=== PATIENT | female | born 1945 | race African-American/Black ===

== ENCOUNTER 2019-05-10 18:16 | Inpatient (IN) | payer MEDICARE ==
[~2019-05-10] VITALS: Ht 157.5 cm; Wt 69.4 kg
[2019-05-10 20:01] LABS: BASOPHILS % 0.5 % (0.0-2.0); EOSINOPHILS % 2.9 % (0.0-5.0); HEMATOCRIT. 31.4 % (36.0-48.0); LYMPHOCYTES % 17.7 % (20.0-50.0); MEAN CORPUSCULAR HEMOGLOBIN 27.2 pg (28.0-32.0); MEAN PLATELET VOLUME 9.2 fl (7.4-10.4); MONOCYTES % 8.2 % (2.0-8.0); NEUTROPHILS % 70.7 % (40.0-76.0); PLATELET 206 x1000/uL (130-400); RED CELL DISTRIBUTION WIDTH 16.6 % (11.6-14.6)
[2019-05-10 20:18] LABS: CHLORIDE 112 mEq/L (98-107)
[2019-05-10 20:26] LABS: CREATINE KINASE 83 IU/L (26-192)
[2019-05-10 20:29] LABS: CREATINE KINASE MB FRACTION 1.7 ng/mL (0.5-3.6)
[2019-05-10 20:34] LABS: PARTIAL THROMBOPLASTIN TIME > 100.0 sec (23.4-31.0)
[2019-05-10] MEDS ORDERED: ASPI-1497 MT (23:42)
[2019-05-10] MEDS ORDERED: RANO500T3 MT (23:42)
[2019-05-10 23:43] VITALS: BP 157/55
[2019-05-10 23:56] VITALS: BP 157/55
[2019-05-11] MEDS ORDERED: LORAZEPAM 2MG/ML CPJ IV PRN (02:00)
[2019-05-11] MEDS ORDERED: CEFTRIAXONE 1 G PREMIX 50 ML IV SCH ×2 (02:00→05:00)
[2019-05-11] MEDS ORDERED: MAGNESIUM/ALUMINUM HYDROXIDE/SIMETHICONE 30ML UDC PO PRN (02:00)
[2019-05-11] MEDS ORDERED: ONDANSETRON HCL 4MG/2ML INJ IV PRN (02:00)
[2019-05-11] MEDS ORDERED: ACETAMINOPHEN 325MG TABLET PO PRN (02:00)
[2019-05-11] MEDS ORDERED: HYDROCODONE/ACETAMINOPHEN 5/325MG TABLET PO PRN (02:00)
[2019-05-11] MEDS ORDERED: CLONIDINE 0.1MG TABLET PO PRN (02:00)
[2019-05-11] MEDS ORDERED: DEXTROSE 50% WATER 50ML SYRINGE IV PRN (02:15)
[2019-05-11] MEDS ORDERED: SODIUM CHLORIDE 0.45% 1,000 ML IV SCH (03:00)
[2019-05-11 04:00] VITALS: BP 128/70
[2019-05-11 08:00] VITALS: BP 127/65
[2019-05-11] MEDS: BLOOD SUGAR DIAGNOSTIC STRIP TEST SCH ×4 (08:00→21:28)
[2019-05-11] MEDS: INSULIN LISPRO 100 UNITS/ML SUBCUT SCH ×4 (08:00→21:00)
[2019-05-11] MEDS ORDERED: INFLUENZA VIRUS VACCINE(AFLURIA) 0.5ML SYR IM ONE (10:00)
[2019-05-11 12:00] VITALS: BP 134/96
[2019-05-11] MEDS: ENOXAPARIN 30MG/0.3ML SYR SUBCUT SCH (12:21)
[2019-05-11] MEDS: AMLODIPINE 10MG TABLET PO SCH (12:21)
[2019-05-11] MEDS: ASPIRIN 81MG EC TABLET PO SCH (12:21)
[2019-05-11 13:33] LABS: CREATINE KINASE 76 IU/L (26-192)
[2019-05-11 16:00] VITALS: BP 128/89
[2019-05-11 17:04] LABS: CREATINE KINASE 77 IU/L (26-192)
[2019-05-11] MEDS: CLONAZEPAM 0.5MG TABLET PO SCH (18:19)
[2019-05-11 19:56] LABS: VITAMIN B12 SERUM 690 pg/mL (211-911)
[2019-05-11 20:00] VITALS: BP 109/49
[2019-05-12] VITALS: BP 100/45
[2019-05-12 04:00] VITALS: BP 124/58
[2019-05-12 08:00] VITALS: BP 121/52
[2019-05-12] MEDS: INSULIN LISPRO 100 UNITS/ML SUBCUT SCH ×4 (08:10→21:00)
[2019-05-12 08:19] LABS: BASOPHILS % 0.7 % (0.0-2.0); EOSINOPHILS % 4.8 % (0.0-5.0); HEMATOCRIT. 32.1 % (36.0-48.0); HEMOGLOBIN. 10.3 g/dL (12.0-16.0); LYMPHOCYTES % 28.9 % (20.0-50.0); MEAN CORPUSCULAR HEMOGLOBIN 26.8 pg (28.0-32.0); MEAN CORPUSCULAR VOLUME 83.8 fL (81.0-99.0); MEAN PLATELET VOLUME 9.2 fl (7.4-10.4); MONOCYTES % 9.3 % (2.0-8.0); NEUTROPHILS % 56.3 % (40.0-76.0); PLATELET 212 x1000/uL (130-400); RED BLOOD CELL COUNT 3.83 mill/uL (4.2-5.4); RED CELL DISTRIBUTION WIDTH 16.5 % (11.6-14.6)
[2019-05-12 08:21] LABS: CHLORIDE 111 mEq/L (98-107)
[2019-05-12 08:31] LABS: LDL CHOLESTEROL 62 mg/dL (5-100)
[2019-05-12] MEDS: BLOOD SUGAR DIAGNOSTIC STRIP TEST SCH ×4 (08:31→21:31)
[2019-05-12 08:33] LABS: HDL CHOLESTEROL 61 mg/dL (40-59)
[2019-05-12] MEDS: CLONAZEPAM 0.5MG TABLET PO SCH ×2 (09:12→17:44)
[2019-05-12] MEDS: ASPIRIN 81MG EC TABLET PO SCH (09:12)
[2019-05-12] MEDS: LIDOCAINE HCL/PF 1% 10 MG/ML 5ML VIAL IJ SCH (09:13)
[2019-05-12] MEDS: ENOXAPARIN 30MG/0.3ML SYR SUBCUT SCH (09:13)
[2019-05-12] MEDS: AMLODIPINE 10MG TABLET PO SCH (09:13)
[2019-05-12] MEDS: CEFTRIAXONE SODIUM 1 G/VIAL IM SCH (09:14)
[2019-05-12 12:00] VITALS: BP 121/49
[2019-05-12 16:00] VITALS: BP 97/63
[2019-05-12 20:00] VITALS: BP 119/56
[2019-05-13 00:07] VITALS: BP 133/48
[2019-05-13 04:00] VITALS: BP 141/63
[2019-05-13] MEDS: BLOOD SUGAR DIAGNOSTIC STRIP TEST SCH ×3 (06:17→17:21)
[2019-05-13 08:00] VITALS: BP 140/65
[2019-05-13] MEDS: INSULIN LISPRO 100 UNITS/ML SUBCUT SCH ×4 (08:08→21:00)
[2019-05-13] MEDS: AMLODIPINE 10MG TABLET PO SCH (09:34)
[2019-05-13] MEDS: LIDOCAINE HCL/PF 1% 10 MG/ML 5ML VIAL IJ SCH (09:34)
[2019-05-13] MEDS: ASPIRIN 81MG EC TABLET PO SCH (09:34)
[2019-05-13] MEDS: CEFTRIAXONE SODIUM 1 G/VIAL IM SCH (09:34)
[2019-05-13] MEDS: CLONAZEPAM 0.5MG TABLET PO SCH ×2 (09:34→17:31)
[2019-05-13] MEDS: ENOXAPARIN 30MG/0.3ML SYR SUBCUT SCH (09:35)
[2019-05-13 12:00] VITALS: BP 135/63
[2019-05-13 16:00] VITALS: BP 117/65
[2019-05-13 20:00] VITALS: BP 146/62
[2019-05-14] VITALS (7 sets, daily range): BP systolic 136–151; BP diastolic 55–68
[2019-05-14] MEDS: BLOOD SUGAR DIAGNOSTIC STRIP TEST SCH ×4 (05:51→21:00)
[2019-05-14] MEDS: INSULIN LISPRO 100 UNITS/ML SUBCUT SCH ×4 (08:10→21:00)
[2019-05-14] MEDS: ASPIRIN 81MG EC TABLET PO SCH (09:54)
[2019-05-14] MEDS: ENOXAPARIN 30MG/0.3ML SYR SUBCUT SCH (09:54)
[2019-05-14] MEDS: AMLODIPINE 10MG TABLET PO SCH (09:55)
[2019-05-14] MEDS: CLONAZEPAM 0.5MG TABLET PO SCH ×2 (09:55→18:02)
[2019-05-14] MEDS: CEFTRIAXONE SODIUM 1 G/VIAL IM SCH (09:57)
[2019-05-15] VITALS: BP 134/63
[2019-05-15 04:00] VITALS: BP 124/68
[2019-05-15] MEDS: BLOOD SUGAR DIAGNOSTIC STRIP TEST SCH ×4 (06:40→21:29)
[2019-05-15 08:00] VITALS: BP 137/75
[2019-05-15] MEDS: INSULIN LISPRO 100 UNITS/ML SUBCUT SCH ×4 (08:10→21:00)
[2019-05-15] MEDS: ASPIRIN 81MG EC TABLET PO SCH (08:39)
[2019-05-15] MEDS: CLONAZEPAM 0.5MG TABLET PO SCH ×2 (08:39→16:29)
[2019-05-15] MEDS: ENOXAPARIN 30MG/0.3ML SYR SUBCUT SCH (08:40)
[2019-05-15] MEDS: AMLODIPINE 10MG TABLET PO SCH (08:40)
[2019-05-15] MEDS: LIDOCAINE HCL/PF 1% 10 MG/ML 5ML VIAL IJ SCH ×2 (08:41→09:04)
[2019-05-15] MEDS: CEFTRIAXONE SODIUM 1 G/VIAL IM SCH (08:41)
[2019-05-15 12:00] VITALS: BP 126/88
[2019-05-15 16:00] VITALS: BP 132/88
[2019-05-15 20:00] VITALS: BP 143/77
[2019-05-15] MEDS: GABAPENTIN 100MG CAPSULE PO SCH (21:29)
[2019-05-16] VITALS: BP 165/66
[2019-05-16 04:00] VITALS: BP 145/75
[2019-05-16] MEDS: BLOOD SUGAR DIAGNOSTIC STRIP TEST SCH ×4 (06:22→21:00)
[2019-05-16] MEDS: GABAPENTIN 100MG CAPSULE PO SCH ×2 (06:33→14:13)
[2019-05-16] MEDS: INSULIN LISPRO 100 UNITS/ML SUBCUT SCH ×4 (07:11→21:00)
[2019-05-16 08:00] VITALS: BP 158/80
[2019-05-16] MEDS: CEFTRIAXONE SODIUM 1 G/VIAL IM SCH (10:13)
[2019-05-16] MEDS: LIDOCAINE HCL/PF 1% 10 MG/ML 5ML VIAL IJ SCH (10:13)
[2019-05-16] MEDS: AMLODIPINE 10MG TABLET PO SCH (10:21)
[2019-05-16] MEDS: CLONAZEPAM 0.5MG TABLET PO SCH ×2 (10:21→18:15)
[2019-05-16] MEDS: ENOXAPARIN 30MG/0.3ML SYR SUBCUT SCH (10:21)
[2019-05-16] MEDS: ASPIRIN 81MG EC TABLET PO SCH (10:24)
[2019-05-16 12:00] VITALS: BP 119/47
[2019-05-16 16:00] VITALS: BP 125/59
[2019-05-16] MEDS: MORPHINE SULFATE 2 MG/ML CPJ (NOT FOR IM USE) IV PRN (20:56)
[2019-05-16] MEDS: GABAPENTIN 300MG CAPSULE PO SCH (23:30)
[2019-05-16 23:58] VITALS: BP 165/70
[2019-05-17 04:00] VITALS: BP 149/62
[2019-05-17] MEDS: GABAPENTIN 300MG CAPSULE PO SCH ×3 (05:56→21:30)
[2019-05-17] MEDS: BLOOD SUGAR DIAGNOSTIC STRIP TEST SCH ×4 (07:40→21:08)
[2019-05-17 08:00] VITALS: BP 139/61
[2019-05-17] MEDS: INSULIN LISPRO 100 UNITS/ML SUBCUT SCH ×4 (08:10→21:23)
[2019-05-17] MEDS: ASPIRIN 81MG EC TABLET PO SCH (09:15)
[2019-05-17] MEDS: AMLODIPINE 10MG TABLET PO SCH (09:15)
[2019-05-17] MEDS: CEFTRIAXONE SODIUM 1 G/VIAL IM SCH (09:16)
[2019-05-17] MEDS: ENOXAPARIN 30MG/0.3ML SYR SUBCUT SCH (09:16)
[2019-05-17] MEDS: LIDOCAINE HCL/PF 1% 10 MG/ML 5ML VIAL IJ SCH (09:17)
[2019-05-17] MEDS: MORPHINE SULFATE 2 MG/ML CPJ (NOT FOR IM USE) IV PRN ×2 (11:04→21:30)
[2019-05-17 12:00] VITALS: BP 134/56
[2019-05-17 16:00] VITALS: BP 133/54
[2019-05-17 20:00] VITALS: BP 123/52
[2019-05-18] VITALS: BP 119/49
[2019-05-18 04:00] VITALS: BP 135/53
[2019-05-18] MEDS: GABAPENTIN 300MG CAPSULE PO SCH ×2 (06:14→16:07)
[2019-05-18 08:00] VITALS: BP 126/61
[2019-05-18] MEDS: INSULIN LISPRO 100 UNITS/ML SUBCUT SCH ×2 (08:10→13:10)
[2019-05-18] MEDS: BLOOD SUGAR DIAGNOSTIC STRIP TEST SCH ×2 (08:12→13:22)
[2019-05-18] MEDS: LIDOCAINE HCL/PF 1% 10 MG/ML 5ML VIAL IJ SCH ×2 (09:00→10:08)
[2019-05-18] MEDS: CEFTRIAXONE SODIUM 1 G/VIAL IM SCH ×2 (09:00→10:08)
[2019-05-18] MEDS: ASPIRIN 81MG EC TABLET PO SCH (10:08)
[2019-05-18] MEDS: AMLODIPINE 10MG TABLET PO SCH (10:08)
[2019-05-18] MEDS: ENOXAPARIN 30MG/0.3ML SYR SUBCUT SCH (10:09)
[2019-05-18] MEDS ORDERED: GABA300C MT (10:38)
[2019-05-18 12:00] VITALS: BP 126/53
[2019-05-18 16:00] VITALS: BP 125/75
[2019-05-18 16:13] VITALS: BP 126/53
== END 2019-05-18 18:52 | disposition home or self-care (01) | DRG 683 ==
LOC: ER 18:16 → 7WST 21:26 → EDBEDREQ 21:32 → EDBEDREQTM 21:32 → ENRESERV 22:02
PROVIDERS: ADMIT Hospitalist; ATTEND Hospitalist
DX: N17.9 Acute kidney failure, unspecified (principal); G93.40 Encephalopathy, unspecified; E44.1 Mild protein-calorie malnutrition; B02.29 Other postherpetic nervous system involvement; Z95.1 Presence of aortocoronary bypass graft; E11.9 Type 2 diabetes mellitus without complications; R29.6 Repeated falls; R41.89 Other symptoms and signs involving cognitive functions and awareness; G25.0 Essential tremor; E87.5 Hyperkalemia; I10 Essential (primary) hypertension; D64.9 Anemia, unspecified; G24.9 Dystonia, unspecified; I25.10 Atherosclerotic heart disease of native coronary artery without angina pectoris; Z68.28 Body mass index [BMI] 28.0-28.9, adult
CPT/HCPCS: 36415; 70551; 71045; 80048; 80053; 80061; 82390; 82550; 82553; 82607; 82962; 83605; 83880; 84145; 84443; 84484; 85025; 90686; 93005; 93970; 96365; 97116; 97162; 97166; 97535; 99285; J0696; J1650; J1815; J2270; J3490

== ENCOUNTER 2020-04-10 11:10 | Inpatient (IN) | payer MEDICARE, MEDICAID ==
[~2020-04-10] VITALS: Ht 160 cm; Wt 77.6 kg
[~2020-04-10 11:10] MED LIST: ASPI-1497 MT; GABA300C MT; RANO500T3 MT
[2020-04-10] MEDS ORDERED: KETOROLAC 30MG/ML VIAL IV STA (11:34)
[2020-04-10 12:33] LABS: BASOPHILS % 0.7 % (0.0-2.0); EOSINOPHILS % 2.4 % (0.0-5.0); HEMATOCRIT. 34.8 % (36.0-48.0); HEMOGLOBIN. 11.3 g/dL (12.0-16.0); LYMPHOCYTES % 22.6 % (20.0-50.0); MEAN CORPUSCULAR HEMOGLOBIN 27.4 pg (28.0-32.0); MEAN CORPUSCULAR VOLUME 84.4 fL (81.0-99.0); NEUTROPHILS % 66.3 % (40.0-76.0); PLATELET 190 x1000/uL (130-400); RED BLOOD CELL COUNT 4.12 mill/uL (4.2-5.4); RED CELL DISTRIBUTION WIDTH 14.9 % (11.6-14.6)
[2020-04-10 12:56] LABS: CHLORIDE 103 mEq/L (98-107)
[2020-04-10 19:35] LABS: CLARITY URINE CLEAR (CLEAR); COLOR URINE YELLOW (YELLOW); KETONES URINE NEGATIVE (NEGATIVE); LEUKOCYTE ESTERASE URINE NEGATIVE (NEGATIVE); NITRITE URINE NEGATIVE (NEGATIVE); OCCULT BLOOD URINE TRACE (NEGATIVE); PH URINE 7.5 (4.5-8.0); PROTEIN URINE 1+ (NEGATIVE); SPECIFIC GRAVITY URINE 1.012 (1.005-1.030); UROBILINOGEN URINE 0.2 E.U./dL (0.2-1.0)
[2020-04-10 21:40] VITALS: BP 168/70
[2020-04-10] MEDS ORDERED: AMLO10TA4 MT (22:06)
[2020-04-10] MEDS ORDERED: TICA90TA MT (22:06)
[2020-04-10] MEDS ORDERED: CARV25TA47 MT (22:07)
[2020-04-10] MEDS ORDERED: CLON0.1T MT (22:08)
[2020-04-10] MEDS ORDERED: DICL100G31 TP (22:09)
[2020-04-10] MEDS ORDERED: DICY20TA11 MT (22:10)
[2020-04-10] MEDS ORDERED: LISI-604 MT (22:11)
[2020-04-10] MEDS ORDERED: FURO20TA4 MT (22:11)
[2020-04-10] MEDS ORDERED: PRIM50TA31 MT (22:14)
[2020-04-10] MEDS ORDERED: ROSU40TA MT (22:15)
[2020-04-10] MEDS ORDERED: DOCU-286 MT (22:16)
[2020-04-10] MEDS ORDERED: ALBU6.7H9 INH ×2 (22:17→22:18)
[2020-04-10] MEDS ORDERED: ALBUTEROL 6.7GM HFA INHALER INH PRN (23:30)
[2020-04-10] MEDS ORDERED: ONDANSETRON HCL 4MG/2ML INJ IV PRN (23:45)
[2020-04-10] MEDS ORDERED: DEXTROSE 50% WATER 50ML SYRINGE IV PRN (23:45)
[2020-04-11] VITALS: BP 128/53
[2020-04-11] MEDS ORDERED: ALBUTEROL (0.083%) 2.5MG/3ML NEB HHN PRN (01:48)
[2020-04-11 04:00] VITALS: BP_SYST 123; BP_SYST 129; BP_SYST 130; BP_DIAS 49; BP_DIAS 55; BP_DIAS 79
[2020-04-11] MEDS: INSULIN LISPRO 100 UNITS/ML SUBCUT SCH ×4 (06:09→22:10)
[2020-04-11] MEDS: BLOOD SUGAR DIAGNOSTIC STRIP TEST SCH ×4 (06:09→21:00)
[2020-04-11 07:07] LABS: BASOPHILS % 0.6 % (0.0-2.0); EOSINOPHILS % 2.7 % (0.0-5.0); HEMATOCRIT. 36.7 % (36.0-48.0); HEMOGLOBIN. 11.7 g/dL (12.0-16.0); LYMPHOCYTES % 25.2 % (20.0-50.0); MEAN CORPUSCULAR HEMOGLOBIN 26.7 pg (28.0-32.0); MEAN CORPUSCULAR VOLUME 83.8 fL (81.0-99.0); MEAN PLATELET VOLUME 9.1 fl (7.4-10.4); MONOCYTES % 9.7 % (2.0-8.0); NEUTROPHILS % 61.8 % (40.0-76.0); PLATELET 185 x1000/uL (130-400); RED BLOOD CELL COUNT 4.39 mill/uL (4.2-5.4); RED CELL DISTRIBUTION WIDTH 14.7 % (11.6-14.6)
[2020-04-11 07:38] LABS: CHLORIDE 105 mEq/L (98-107)
[2020-04-11 07:43] LABS: CREATINE KINASE 152 IU/L (26-192); CREATINE KINASE MB FRACTION 2.5 ng/mL (0.5-3.6)
[2020-04-11 08:00] VITALS: BP_SYST 159; BP_SYST 163; BP_DIAS 78; BP_DIAS 89
[2020-04-11] MEDS: DOCUSATE SODIUM 100MG CAPSULE PO SCH ×2 (08:43→18:23)
[2020-04-11] MEDS: CARVEDILOL 12.5MG TABLET PO SCH ×2 (08:43→22:08)
[2020-04-11] MEDS: CLONIDINE 0.1MG TABLET PO SCH ×2 (08:43→18:24)
[2020-04-11] MEDS: FUROSEMIDE 20MG TABLET PO SCH (08:44)
[2020-04-11] MEDS: DICYCLOMINE HCL 20MG TABLET PO SCH ×3 (08:44→18:23)
[2020-04-11] MEDS: PRIMIDONE 50MG TABLET PO SCH ×2 (08:44→22:09)
[2020-04-11] MEDS: LISINOPRIL 20MG TABLET PO SCH ×2 (08:44→22:07)
[2020-04-11] MEDS: GABAPENTIN 300MG CAPSULE PO SCH ×2 (08:45→13:12)
[2020-04-11] MEDS: HEPARIN 5000 UNITS/ML VIAL SUBCUT SCH ×2 (08:45→22:09)
[2020-04-11] MEDS: AMLODIPINE 10MG TABLET PEG SCH (08:45)
[2020-04-11] MEDS: TICAGRELOR 90 MG TABLET PO SCH ×2 (08:45→22:08)
[2020-04-11] MEDS ORDERED: DICLOFENAC SODIUM TP SCH (09:00)
[2020-04-11] MEDS: ACETAMINOPHEN 325MG TABLET PO PRN (09:08)
[2020-04-11 12:00] VITALS: BP 142/52
[2020-04-11 16:00] VITALS: BP 118/68
[2020-04-11 16:47] LABS: ETHANOL BLOOD < 10 mg/dL
[2020-04-11 16:52] LABS: CREATINE KINASE 137 IU/L (26-192)
[2020-04-11 16:53] LABS: CREATINE KINASE MB FRACTION 1.6 ng/mL (0.5-3.6)
[2020-04-11 20:00] VITALS: BP_SYST 126; BP_SYST 127; BP_SYST 138; BP_DIAS 63; BP_DIAS 67; BP_DIAS 69
[2020-04-11] MEDS ORDERED: MEDICATION NOT ON FORMULARY EA (Rosuvastatin Calcium (Crestor) 1 TAB) MT SCH (21:00)
[2020-04-11] MEDS: ATORVASTATIN CALCIUM 40MG TABLET PO SCH (22:07)
[2020-04-11 23:39] LABS: CREATINE KINASE 166 IU/L (26-192)
[2020-04-12] VITALS: BP 138/82
[2020-04-12 04:00] VITALS: BP 161/71
[2020-04-12] MEDS: BLOOD SUGAR DIAGNOSTIC STRIP TEST SCH ×4 (06:16→20:08)
[2020-04-12] MEDS: INSULIN LISPRO 100 UNITS/ML SUBCUT SCH ×4 (06:16→20:16)
[2020-04-12 07:46] LABS: *AMPHETAMINES SCREEN URINE NEGATIVE (NEGATIVE); *BARBITURATES SCREEN URINE PRESUMTIVE POSITIVE (NEGATIVE)
[2020-04-12 07:48] LABS: *BENZODIAZEPINES SCREEN URINE NEGATIVE (NEGATIVE); *COCAINE SCREEN URINE NEGATIVE (NEGATIVE); METHADONE URINE SCREEN NEGATIVE (NEGATIVE); OPIATES URINE SCREEN NEGATIVE (NEGATIVE); PHENCYCLIDINE URINE SCREEN NEGATIVE (NEGATIVE)
[2020-04-12 07:49] LABS: CANNABINOID URINE SCREEN NEGATIVE (NEGATIVE)
[2020-04-12 08:00] VITALS: BP_SYST 156; BP_SYST 158; BP_DIAS 68; BP_DIAS 99
[2020-04-12] MEDS: DOCUSATE SODIUM 100MG CAPSULE PO SCH ×2 (09:43→18:04)
[2020-04-12] MEDS: GABAPENTIN 300MG CAPSULE PO SCH (09:43)
[2020-04-12] MEDS: CLONIDINE 0.1MG TABLET PO SCH ×2 (09:43→18:04)
[2020-04-12] MEDS: PRIMIDONE 50MG TABLET PO SCH ×2 (09:44→20:03)
[2020-04-12] MEDS: CARVEDILOL 12.5MG TABLET PO SCH ×2 (09:44→20:07)
[2020-04-12] MEDS: TICAGRELOR 90 MG TABLET PO SCH ×2 (09:44→20:07)
[2020-04-12] MEDS: AMLODIPINE 10MG TABLET PEG SCH (09:45)
[2020-04-12] MEDS: DICYCLOMINE HCL 20MG TABLET PO SCH ×3 (09:45→18:04)
[2020-04-12] MEDS: FUROSEMIDE 20MG TABLET PO SCH (09:45)
[2020-04-12] MEDS: LISINOPRIL 20MG TABLET PO SCH ×2 (09:46→20:07)
[2020-04-12] MEDS: HEPARIN 5000 UNITS/ML VIAL SUBCUT SCH ×2 (09:47→20:08)
[2020-04-12 12:00] VITALS: BP 145/74
[2020-04-12 16:00] VITALS: BP 141/59
[2020-04-12] MEDS: ASPIRIN 81MG TABLET PO SCH (18:04)
[2020-04-12 20:00] VITALS: BP 124/68
[2020-04-12] MEDS: ATORVASTATIN CALCIUM 40MG TABLET PO SCH (20:07)
[2020-04-13] VITALS: BP 127/53
[2020-04-13 04:00] VITALS: BP_SYST 141; BP_SYST 148; BP_DIAS 50
[2020-04-13] MEDS: BLOOD SUGAR DIAGNOSTIC STRIP TEST SCH ×4 (06:22→20:59)
[2020-04-13] MEDS: INSULIN LISPRO 100 UNITS/ML SUBCUT SCH ×4 (06:22→21:10)
[2020-04-13 08:00] VITALS: BP_SYST 143; BP_SYST 164; BP_DIAS 67; BP_DIAS 70
[2020-04-13] MEDS: PRIMIDONE 50MG TABLET PO SCH ×2 (08:57→20:59)
[2020-04-13] MEDS: DICYCLOMINE HCL 20MG TABLET PO SCH ×3 (08:57→17:06)
[2020-04-13] MEDS: CARVEDILOL 12.5MG TABLET PO SCH ×2 (08:58→20:58)
[2020-04-13] MEDS: TICAGRELOR 90 MG TABLET PO SCH ×2 (08:58→20:59)
[2020-04-13] MEDS: ASPIRIN 81MG TABLET PO SCH (08:59)
[2020-04-13] MEDS: FUROSEMIDE 20MG TABLET PO SCH (08:59)
[2020-04-13] MEDS: GABAPENTIN 300MG CAPSULE PO SCH (08:59)
[2020-04-13] MEDS: AMLODIPINE 10MG TABLET PEG SCH (09:00)
[2020-04-13] MEDS: CLONIDINE 0.1MG TABLET PO SCH ×2 (09:00→17:12)
[2020-04-13] MEDS: LISINOPRIL 20MG TABLET PO SCH ×2 (09:01→20:58)
[2020-04-13] MEDS: DOCUSATE SODIUM 100MG CAPSULE PO SCH ×2 (09:01→17:06)
[2020-04-13] MEDS: HEPARIN 5000 UNITS/ML VIAL SUBCUT SCH ×2 (09:02→20:59)
[2020-04-13] MEDS: ACETAMINOPHEN 325MG TABLET PO PRN (09:19)
[2020-04-13 12:00] VITALS: BP_SYST 127; BP_SYST 132; BP_DIAS 65; BP_DIAS 69
[2020-04-13 16:00] VITALS: BP_SYST 124; BP_SYST 138; BP_DIAS 49; BP_DIAS 70
[2020-04-13 20:00] VITALS: BP_SYST 113; BP_DIAS 43; BP_DIAS 50
[2020-04-13] MEDS: ATORVASTATIN CALCIUM 40MG TABLET PO SCH (20:58)
[2020-04-14] VITALS: BP 102/42
[2020-04-14 04:00] VITALS: BP 122/48
[2020-04-14] MEDS: INSULIN LISPRO 100 UNITS/ML SUBCUT SCH ×4 (06:50→21:52)
[2020-04-14] MEDS: BLOOD SUGAR DIAGNOSTIC STRIP TEST SCH ×4 (06:50→21:54)
[2020-04-14] MEDS: LISINOPRIL 20MG TABLET PO SCH ×2 (09:07→21:00)
[2020-04-14] MEDS: DOCUSATE SODIUM 100MG CAPSULE PO SCH ×2 (09:07→16:35)
[2020-04-14] MEDS: AMLODIPINE 10MG TABLET PEG SCH (09:07)
[2020-04-14] MEDS: ASPIRIN 81MG TABLET PO SCH (09:07)
[2020-04-14] MEDS: CARVEDILOL 12.5MG TABLET PO SCH ×2 (09:09→21:00)
[2020-04-14] MEDS: FUROSEMIDE 20MG TABLET PO SCH (09:09)
[2020-04-14] MEDS: TICAGRELOR 90 MG TABLET PO SCH ×2 (09:09→21:00)
[2020-04-14] MEDS: CLONIDINE 0.1MG TABLET PO SCH ×2 (09:10→16:35)
[2020-04-14] MEDS: GABAPENTIN 300MG CAPSULE PO SCH (09:10)
[2020-04-14] MEDS: HEPARIN 5000 UNITS/ML VIAL SUBCUT SCH ×2 (09:12→21:50)
[2020-04-14] MEDS: DICYCLOMINE HCL 20MG TABLET PO SCH ×3 (09:16→16:35)
[2020-04-14] MEDS: PRIMIDONE 50MG TABLET PO SCH ×2 (09:16→22:01)
[2020-04-14 09:38] VITALS: BP_SYST 135; BP_SYST 150; BP_DIAS 54; BP_DIAS 61; BP_DIAS 67
[2020-04-14 12:00] VITALS: BP 116/44
[2020-04-14 16:00] VITALS: BP 134/44
[2020-04-14 20:00] VITALS: BP 95/35
[2020-04-14] MEDS: ATORVASTATIN CALCIUM 40MG TABLET PO SCH (21:50)
[2020-04-15] VITALS (8 sets, daily range): BP systolic 106–148; BP diastolic 42–96
[2020-04-15] MEDS: INSULIN LISPRO 100 UNITS/ML SUBCUT SCH ×3 (06:19→17:33)
[2020-04-15] MEDS: BLOOD SUGAR DIAGNOSTIC STRIP TEST SCH ×3 (06:19→17:28)
[2020-04-15] MEDS: ASPIRIN 81MG TABLET PO SCH (08:39)
[2020-04-15] MEDS: TICAGRELOR 90 MG TABLET PO SCH (08:39)
[2020-04-15] MEDS: CARVEDILOL 12.5MG TABLET PO SCH (08:39)
[2020-04-15] MEDS: DICYCLOMINE HCL 20MG TABLET PO SCH ×3 (08:39→17:30)
[2020-04-15] MEDS: AMLODIPINE 10MG TABLET PEG SCH (08:39)
[2020-04-15] MEDS: FUROSEMIDE 20MG TABLET PO SCH (08:39)
[2020-04-15] MEDS: GABAPENTIN 300MG CAPSULE PO SCH (08:39)
[2020-04-15] MEDS: HEPARIN 5000 UNITS/ML VIAL SUBCUT SCH (08:40)
[2020-04-15] MEDS: LISINOPRIL 20MG TABLET PO SCH (08:40)
[2020-04-15] MEDS: PRIMIDONE 50MG TABLET PO SCH (08:51)
[2020-04-15] MEDS: DOCUSATE SODIUM 100MG CAPSULE PO SCH ×2 (08:51→17:24)
[2020-04-15] MEDS: CLONIDINE 0.1MG TABLET PO SCH ×2 (08:51→17:00)
== END 2020-04-15 20:25 | DRG 74 ==
LOC: ER 11:17 → 8WST 16:08 → ENRESERV 20:19
PROVIDERS: ADMIT Internal Medicine; ATTEND Internal Medicine
DX: G90.8 Other disorders of autonomic nervous system (principal); I13.0 Hypertensive heart and chronic kidney disease with heart failure and stage 1 through stage 4 chronic kidney disease, or unspecified chronic kidney disease; E44.1 Mild protein-calorie malnutrition; N17.9 Acute kidney failure, unspecified; I50.9 Heart failure, unspecified; N18.9 Chronic kidney disease, unspecified; E11.22 Type 2 diabetes mellitus with diabetic chronic kidney disease; E78.5 Hyperlipidemia, unspecified; E87.6 Hypokalemia; I25.10 Atherosclerotic heart disease of native coronary artery without angina pectoris; E78.00 Pure hypercholesterolemia, unspecified; M54.9 Dorsalgia, unspecified; E11.40 Type 2 diabetes mellitus with diabetic neuropathy, unspecified; G31.84 Mild cognitive impairment of uncertain or unknown etiology; R90.82 White matter disease, unspecified; R00.1 Bradycardia, unspecified; Z20.828 Contact with and (suspected) exposure to other viral communicable diseases; W01.0XXA Fall on same level from slipping, tripping and stumbling without subsequent striking against object, initial encounter; Y93.01 Activity, walking, marching and hiking; Z86.73 Personal history of transient ischemic attack (TIA), and cerebral infarction without residual deficits; Z79.82 Long term (current) use of aspirin; Z79.899 Other long term (current) drug therapy; Z82.49 Family history of ischemic heart disease and other diseases of the circulatory system; Z79.02 Long term (current) use of antithrombotics/antiplatelets; Z68.30 Body mass index [BMI] 30.0-30.9, adult; Y92.89 Other specified places as the place of occurrence of the external cause; Y99.8 Other external cause status
CPT/HCPCS: 36415; 70544; 70553; 71045; 72170; 73080; 80048; 80053; 80305; 80320; 81003; 82550; 82553; 82962; 83036; 83880; 84484; 85025; 87426; 93005; 93306; 93880; 97116; 97162; 97166; 97530; 97535; 99285; J1644; J1815; J1885; G0480; J8499